=== PATIENT | female | born 1940 | race Caucasian/White ===

== ENCOUNTER 2020-12-10 20:08 | Emergency (ER) | payer MEDICARE ==
[~2020-12-10] VITALS: Ht 162.6 cm; Wt 59.1 kg
[2020-12-10 20:10] VITALS: TEMP 98
[2020-12-10 20:50] LABS: BASO % 0.2 % (0.0-2.0); EOS % 0.2 % (0-4.0); GRAN # 15.1 (1.4-6.5); GRAN % 82.9 % (42.2-75.2); LYMPH # 1.5 (1.2-3.4); LYMPH % 8.5 % (20.0-51.0); MEAN CELL VOLUME 82 fl (80.0-100.0); MEAN CORPUSCULAR HGB CONC 32 g/dl (33.0-37.0); MONO # 1.4 (0.1-0.6); MONO % 7.5 % (1.7-9.3); PLATELET COUNT 400 K/mm3 (130-400); REDCELL DISTRIBUTION WIDTH-CV 15.6 % (11.5-14.5)
[2020-12-10 20:52] LABS: HEMATOCRIT 28.6 % (37.0-47.0); HEMOGLOBIN 9.1 g/dl (12.5-16.0); MEAN CORPUSCULAR HEMOGLOBIN 26 pg (27.0-31.0)
[2020-12-10 21:02] LABS: ALBUMIN 3.4 gm/dL (3.5-5.0); BILIRUBIN,TOTAL 0.1 mg/dL (0.0-1.0); CALCIUM 8.7 mg/dL (8.4-10.2); CREATININE, serum 0.67 (0.52-1.25); POTASSIUM 3.2 mmol/L (3.4-5.0); TOTAL PROTEIN 6.3 gm/dL (6.4-8.2)
[2020-12-10 21:39] LABS: COLLECTION METHOD CLEAN CATCH
[2020-12-10 21:51] LABS: MUCOUS Present /lpf; PH 6 (5-8); SQUAMOUS EPITHELIAL 0-2 /hpf; URINE APPEARANCE Hazy; URINE BACTERIA Rare /hpf; URINE BILIRUBIN Negative (NEGATIVE); URINE BLOOD 1+ (NEGATIVE); URINE COLOR Yellow; URINE GLUCOSE Negative (NEGATIVE); URINE KETONE Trace (NEGATIVE); URINE LEUKOCYTE ESTERASE 2+ (NEGATIVE); URINE NITRATE Negative (NEGATIVE); URINE PROTEIN(semi-quant) 2+ (NEGATIVE); URINE RBC >50 /hpf; URINE UROBILINOGEN Negative (NEGATIVE)
[2020-12-10] MEDS ORDERED: OMNICEF 300MG300 MG PO (22:15)
[2020-12-10 23:34] VITALS: BP 125/78; PULSE 76
[2020-12-18] VITALS (7 sets, daily range): O2SAT 96–97
== END 2020-12-10 23:34 | disposition home or self-care (01) ==
LOC: COL.ER 20:08
PROVIDERS: Family Medicine
DX: N39.0 Urinary tract infection, site not specified (principal); D64.9 Anemia, unspecified; D72.829 Elevated white blood cell count, unspecified; I10 Essential (primary) hypertension; W01.0XXA Fall on same level from slipping, tripping and stumbling without subsequent striking against object, initial encounter; Y92.009 Unspecified place in unspecified non-institutional (private) residence as the place of occurrence of the external cause

== ENCOUNTER 2020-12-17 09:18 | Inpatient (IN) | payer MEDICARE ==
[~2020-12-17] VITALS: Ht 162.6 cm; Wt 61.9 kg
[2020-12-17] VITALS (335 sets, daily range): BP systolic 91–127; BP diastolic 42–60; PULSE 93–119; TEMP 97.5–98; O2SAT 95–100
[~2020-12-17 09:18] MED LIST: OMNICEF 300MG300 MG PO
[2020-12-17 10:04] LABS: MEAN CELL VOLUME 84 fl (80.0-100.0); MEAN CORPUSCULAR HGB CONC 31 g/dl (33.0-37.0); MEAN PLATELET VOLUME 9.9 fl (7.4-10.4); PLATELET COUNT 555 K/mm3 (130-400); RED BLOOD COUNT 3.22 M/mm3 (4.10-5.30); REDCELL DISTRIBUTION WIDTH-CV 15.9 % (11.5-14.5)
[2020-12-17 10:11] LABS: ALBUMIN 3.2 gm/dL (3.5-5.0); BILIRUBIN,TOTAL 0.3 mg/dL (0.0-1.0); CALCIUM 10.2 mg/dL (8.4-10.2); CREATININE, serum 1.12 (0.52-1.25); POTASSIUM 4.6 mmol/L (3.4-5.0); TOTAL PROTEIN 6.2 gm/dL (6.4-8.2)
[2020-12-17 10:20] LABS: HEMATOCRIT 27.1 % (37.0-47.0); HEMOGLOBIN 8.5 g/dl (12.5-16.0); MEAN CORPUSCULAR HEMOGLOBIN 26 pg (27.0-31.0)
[2020-12-17 10:38] LABS: MUCOUS Present /lpf; PH 5 (5-8); SQUAMOUS EPITHELIAL None Seen /hpf; URINE APPEARANCE Cloudy; URINE BACTERIA Rare /hpf; URINE BILIRUBIN Negative (NEGATIVE); URINE BLOOD 3+ (NEGATIVE); URINE COLOR Yellow; URINE GLUCOSE Negative (NEGATIVE); URINE KETONE Negative (NEGATIVE); URINE LEUKOCYTE ESTERASE 3+ (NEGATIVE); URINE NITRATE Negative (NEGATIVE); URINE PROTEIN(semi-quant) 2+ (NEGATIVE); URINE UROBILINOGEN Negative (NEGATIVE)
[2020-12-17 10:42] LABS: COLLECTION METHOD CATHETER
[2020-12-17 10:46] LABS: ANISOCYTOSIS 1+; BAND 4 % (0-10); BASOPHIL 1 % (0-2); HYPOCHROMIA 2+; LYMPHOCYTE 8 % (20.0-51.0); METAMYELOCYTE 2 % (0-0); NEUTROPHILS 82 % (42.0-75.2); PLATELET ESTIMATE INCREASED (NORMAL)
[2020-12-17 10:49] LABS: OVALOCYTES 1+
--- NOTE | 2020-12-17 12:15 | NUR ---
PT ADMITTED FROM ED WITH WEAKNESS, UTI, AND GI BLEED. PT STATES NEEDS TO VOID. PT STOOL AND PIVOTED WITH HELP TO BSC. PT HAD LARGE MAROON STOOL AND BECAME DIZZY. BP CHECKED AND 82/42. PT HELPED TO BED AND LAID FLAT. BP UP TO 100'S. PT STATES FEELS BETTER BUT STILL VERY WEAK. PT INSTRUCTED TO STAY IN BED AND WILL CONTINUE BEDREST AT THIS TIME. PT IS ST ON TELE. PT'S BP NOW UP TO 127/60. PT HAS NS AND ZOSYN RUNNING. PT ORIENTED TO ROOM AND FLOOR. PT STATES DAUGHTER IN LAW WILL BE HER VISITOR. PT GIVEN WARM BLANKET AND WATER. PT HAS CLOTHES IN BELONGING BAG. PT STATES DAUGHTER IN LAW HAS HER PHONE AND GLASSESS AND WILL BE UP SOON. WILL CONTINUE TO [facility].
[2020-12-17] MEDS ORDERED: ZOCOR 20MG20 MG PO (12:55)
[2020-12-17] MEDS ORDERED: NORVASC 5MG5 MG/TAB PO (12:56)
[2020-12-17] MEDS ORDERED: LOTENSIN40 MG PO (12:56)
[2020-12-17] MEDS ORDERED: PRESERVISION1 SGL PO (12:57)
[2020-12-17] MEDS ORDERED: ASPIRIN 81M81 MG/TA2 PO (12:57)
[2020-12-17] MEDS ORDERED: SYSTANE 0.4%-0.1 SOL OP (13:00)
[2020-12-17] MEDS ORDERED: ISTALOL 2.5 ML2.5 ML OU (13:01)
[2020-12-17] MEDS ORDERED: OSCAL 500 TAB500 MG PO (13:02)
[2020-12-17] MEDS ORDERED: OMEGA-3 1000 MG1 CAP PO (13:02)
[2020-12-17] MEDS ORDERED: ALPHAGAN OPHTH D5 ML OU (13:02)
[2020-12-17] MEDS ORDERED: B COMPLEX #11 TA1 PO (13:03)
[2020-12-17] MEDS ORDERED: PHARMASSURE ZIN50 MG PO (13:07)
[2020-12-17] MEDS ORDERED: VITAL-D1 TAB PO (13:07)
[2020-12-17] MEDS ORDERED: ALLERGY RELIEF PO (13:08)
[2020-12-17 16:26] LABS: MEAN CELL VOLUME 83 fl (80.0-100.0); MEAN CORPUSCULAR HGB CONC 31 g/dl (33.0-37.0); MEAN PLATELET VOLUME 10.1 fl (7.4-10.4); PLATELET COUNT 505 K/mm3 (130-400)
[2020-12-17 16:39] LABS: HEMATOCRIT 22.3 % (37.0-47.0); MEAN CORPUSCULAR HEMOGLOBIN 26 pg (27.0-31.0)
--- NOTE | 2020-12-17 17:44 | NUR ---
SPOKE WITH REGARDING HGB DOWN TO 7. ORDER RECEIVED TO TRANSFUSE 1 UNIT PRBCS AND RECHECK BP IN ONE HR AFTER. PT AND DAUGHTER IN LAW UPDATED. CONSENT SIGNED. GENA STARTED FOR COLONOSCOPY TOMORROW.
[2020-12-17 18:04] LABS: ANISOCYTOSIS 1+; HYPOCHROMIA 2+; LYMPHOCYTE 3 % (20.0-51.0); NEUTROPHILS 96 % (42.0-75.2); PLATELET ESTIMATE INCREASED (NORMAL)
--- NOTE | 2020-12-17 20:00 | NUR ---
STRAIGHT CATH'D BLADDER DUE TO PT REPORTING URINARY RETENTION WITH NO OUTPUT FOR THE DAY.
[2020-12-18] VITALS (581 sets, daily range): BP systolic 109–134; BP diastolic 47–92; PULSE 89–104; TEMP 97.5–99; O2SAT 93–100
[2020-12-18 05:59] LABS: MEAN CORPUSCULAR HGB CONC 31 g/dl (33.0-37.0); RED BLOOD COUNT 2.92 M/mm3 (4.10-5.30); REDCELL DISTRIBUTION WIDTH-CV 16.6 % (11.5-14.5)
[2020-12-18 06:12] LABS: HEMATOCRIT 25.9 % (37.0-47.0); MEAN CELL VOLUME 89 fl (80.0-100.0); MEAN CORPUSCULAR HEMOGLOBIN 27 pg (27.0-31.0); PLATELET COUNT 395 K/mm3 (130-400)
[2020-12-18 06:13] LABS: CREATININE, serum 0.92 (0.52-1.25); POTASSIUM 3.3 mmol/L (3.4-5.0)
--- NOTE | 2020-12-18 07:00 | NUR ---
PT RESTING IN BED. PT HAS NS RUNNING. PT DOING PREP FOR COLONOSCOPY. WILL CONTINUE TO MONITOR
[2020-12-18 07:33] LABS: BAND 8 % (0-10); EOSINOPHIL 1 % (0-4); LYMPHOCYTE 4 % (20.0-51.0); METAMYELOCYTE 2 % (0-0); NEUTROPHILS 84 % (42.0-75.2)
[2020-12-18 07:34] LABS: PLATELET ESTIMATE NORMAL (NORMAL)
[2020-12-18 07:35] LABS: ANISOCYTOSIS 1+; HYPOCHROMIA 1+; OVALOCYTES 1+; POIKILOCYTOSIS 1+
[2020-12-18 09:44] LABS: COLLECTION METHOD CATHETER
[2020-12-18 10:00] LABS: PH 5 (5-8); SQUAMOUS EPITHELIAL None Seen /hpf; URINE APPEARANCE Turbid; URINE BACTERIA Occasional /hpf; URINE BILIRUBIN Negative (NEGATIVE); URINE BLOOD 3+ (NEGATIVE); URINE COLOR Red; URINE GLUCOSE Negative (NEGATIVE); URINE KETONE Negative (NEGATIVE); URINE LEUKOCYTE ESTERASE 1+ (NEGATIVE); URINE NITRATE Negative (NEGATIVE); URINE PROTEIN(semi-quant) 2+ (NEGATIVE); URINE UROBILINOGEN Negative (NEGATIVE)
--- NOTE | 2020-12-18 10:01 | NUR ---
Initial visit; Patient and family thanked Wound Care Coordinator for looking in on her and offering God's blessings and to keep her in Wound Care Coordinator's prayers.
--- NOTE | 2020-12-18 10:28 | NUR ---
PT UNABLE TO DRINK ANY MORE PREP. PT'S LAST BM WAS ALL LIQUID BROWN/MAROON. NO SOLIDS. MATTEO HEALY IN PACU CALLED AND UPDATED. STATE OK FOR PROCEDURE. WILL MAKE STRICT NPO UNTIL PROCEDURE. PATIENT AND OFAUTMTK-CE-OLD UPDATED. WILL CONTINUE TO MONTIOR.
--- NOTE | 2020-12-18 12:58 | NUR ---
PT TAKEN DOWN TO ENDOSCOPY
--- NOTE | 2020-12-18 13:53 | NUR ---
conservation worker met with patient and her daughter in law, Rossana to discuss discharge planning. Patient lives upstairs in a home and her son and daughter in law reside in the basement apartment. Worker discussed life alert options and patient is open to this and took brochures. Rossana stated they will help patient set up a system. Rossana states they have a portable door carbone, however, when patient fell she pressed it and the children could not hear it. Patient's primary care provider is Dr joseph and patient denies having difficulty obtaining prescriptions. Patient was not using any devices for mobility, however, states she has a walker. Worker advised that physical and occupational therapy will evaluate and give recommendations for care upon discharge. Patient and Rossana state that there are advance directives and they were given to the hospital.
[2020-12-18 13:59] LABS: PATHOLOGY DIFF REVIEW OK
--- NOTE | 2020-12-18 16:16 | NUR ---
CT RESULTS CALLED TO AND . TO CALL AND CONSULT SURGERY. KEEP PT NPO AT THIS TIME.
[2020-12-19] VITALS (180 sets, daily range): BP systolic 100–132; BP diastolic 40–76; PULSE 68–108; TEMP 97.1–98.4; O2SAT 93–100
--- NOTE | 2020-12-19 06:13 | NUR ---
0544 called report to NIRAJ Tellez patient being transferred to room 344, patient informed of transfer 0610 patient transferred to room 344 with all belongings including clothing, blanket, and eye drops
[2020-12-19 06:15] LABS: MEAN CELL VOLUME 86 fl (80.0-100.0); MEAN CORPUSCULAR HGB CONC 32 g/dl (33.0-37.0); MEAN PLATELET VOLUME 9.9 fl (7.4-10.4); RED BLOOD COUNT 2.24 M/mm3 (4.10-5.30); REDCELL DISTRIBUTION WIDTH-CV 16.2 % (11.5-14.5)
--- NOTE | 2020-12-19 06:16 | NUR ---
Patient arrived to surgical floor room 344 from ICU at this time.
[2020-12-19 06:25] LABS: HEMATOCRIT 19.3 % (37.0-47.0); HEMOGLOBIN 6.1 g/dl (12.5-16.0); MEAN CORPUSCULAR HEMOGLOBIN 27 pg (27.0-31.0); PLATELET COUNT 287 K/mm3 (130-400)
--- NOTE | 2020-12-19 06:43 | NUR ---
Patient's hemoglobin was 6.1. Called to Dr. Hope. New order to transfuse 1 unit of blood. Order placed. Called lab and notified them of order.
[2020-12-19 06:44] LABS: CALCIUM 7.4 mg/dL (8.4-10.2); CREATININE, serum 0.64 (0.52-1.25)
[2020-12-19 06:48] LABS: POTASSIUM 2.8 mmol/L (3.4-5.0)
--- NOTE | 2020-12-19 07:00 | NUR ---
Report received from NIRAJ Tellez. Pt in bed resting, denies needs, will conitnue ot monitor.
--- NOTE | 2020-12-19 07:15 | NUR ---
Re's Potassium came back at 2.8. Called to Dr. Hope. New order to start Potassium protocol. Orders placed, recheck level 3 hours after last dose. Day shift nurse notified.
[2020-12-19 07:31] LABS: BAND 4 % (0-10); EOSINOPHIL 2 % (0-4); HYPOCHROMIA 3+; LYMPHOCYTE 13 % (20.0-51.0); METAMYELOCYTE 3 % (0-0); NEUTROPHILS 72 % (42.0-75.2); PLATELET ESTIMATE NORMAL (NORMAL)
[2020-12-19 07:32] LABS: OVALOCYTES 1+
[2020-12-19 07:33] LABS: ANISOCYTOSIS 1+
--- NOTE | 2020-12-19 11:59 | NUR ---
Pt has 1 U PRBCs running to R a/c at this time, verified with 2nd RN and remained in room for first 15 minutes of transfusion, no s/sx of a transfusion reaction noted. Pt resting in bed, up to BSC as needed to void, urine is yellow and hazy. Pt is pale and feels cold, warm blankets applied. Resting in bed with daughter in law at bedside, eating CLD well. Mepilex applied to ST 1 on coccyx. Will continue to monitor.
[2020-12-19 17:21] LABS: HEMATOCRIT 26.2 % (37.0-47.0); HEMOGLOBIN 8.3 g/dl (12.5-16.0)
--- NOTE | 2020-12-19 19:05 | NUR ---
Pt has done well this afternoon, resting in bed between disturbances. Up to BSC often to void, urine remains cloudy. Bedside shift report given to nightshift nurse who will resume care.
[2020-12-20 01:40] VITALS: BP 113/54; PULSE 77; TEMP 97.8
[2020-12-20 04:43] VITALS: BP 138/50; PULSE 78; TEMP 97.9
--- NOTE | 2020-12-20 06:03 | NUR ---
RESTING QUIETLY. NO N/V. PT MALLIKA DENIED NEED FOR PAIN MEDICATION. SHE AMBULATED IN ROOM WITHOUT DIFFICULTY DURING THE NIGHT.
[2020-12-20 07:07] LABS: MEAN CELL VOLUME 88 fl (80.0-100.0); MEAN CORPUSCULAR HGB CONC 32 g/dl (33.0-37.0); MEAN PLATELET VOLUME 10.3 fl (7.4-10.4); PLATELET COUNT 332 K/mm3 (130-400); RED BLOOD COUNT 3.07 M/mm3 (4.10-5.30); REDCELL DISTRIBUTION WIDTH-CV 16.6 % (11.5-14.5)
[2020-12-20 07:18] LABS: HEMOGLOBIN 8.6 g/dl (12.5-16.0); MEAN CORPUSCULAR HEMOGLOBIN 28 pg (27.0-31.0)
[2020-12-20 07:21] LABS: ALBUMIN 2.7 gm/dL (3.5-5.0); BILIRUBIN,TOTAL 0.3 mg/dL (0.0-1.0); CALCIUM 8.4 mg/dL (8.4-10.2); CREATININE, serum 0.66 (0.52-1.25); POTASSIUM 3.5 mmol/L (3.4-5.0); TOTAL PROTEIN 5.5 gm/dL (6.4-8.2)
--- NOTE | 2020-12-20 08:00 | NUR ---
PATIENT IS A&O. VSS WITH TELE INPLACE. DENIES PAIN OR NAUSEA. PATIENT ASSISTED TO BATHROOM AND HAD LARGE, SOFT-FORMED BM, NO BLOOD NOTED. PATIENT HAS HAD EGD & COLONOSCOPY DURING STAY, SEE RESULTS. AM HGB IS 8.6 AND PATIENT IS ASYMPTOMATIC. LEFT FORARM IV TO INT. AM MEDS GIVEN. HEAD TO TOE ASSESSMENT COMPLETE, SEE CHARTING. PATIENT ASSISTED INTO BEDSIDE CHAIR. CLEAR BREAKFAST TRAY ORDERED. NO OTHER NEEDS AT THIS TIME. CALL LIGHT IN REACH. FAMILY FRIEND NOW AT BEDSIDE.
[2020-12-20 08:22] LABS: LYMPHOCYTE 14 % (20.0-51.0); NEUTROPHILS 85 % (42.0-75.2)
[2020-12-20 08:23] LABS: ANISOCYTOSIS 1+; HYPOCHROMIA 2+; PLATELET ESTIMATE NORMAL (NORMAL)
[2020-12-20 08:55] VITALS: BP 145/58; PULSE 66; TEMP 98.1
[2020-12-20 11:53] VITALS: BP 146/60; PULSE 73; TEMP 98
[2020-12-20 16:55] VITALS: BP 150/54; PULSE 79; TEMP 97.9
--- NOTE | 2020-12-20 20:00 | NUR ---
PATIENT IS SITTING UP IN BED. PATIENT IS ALERT AND ORIENTED X4. PATIENT IS ON CLEAR LIQUID DIET AND ON TELE. PATIENT HAS IV TO THE LEFT FOREARM. 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 PATIENT DENIES PAIN OR FURTHER NEEDS AT THIS TIME. CALL LIGHT WITHIN REACH. HEAD TO TOE ASSESSMENT COMPLETE.
[2020-12-20 20:02] VITALS: BP 135/45; PULSE 77; TEMP 98.3
[2020-12-21] VITALS (7 sets, daily range): BP systolic 93–157; BP diastolic 52–69; PULSE 68–78; TEMP 97.5–98.8
--- NOTE | 2020-12-21 06:18 | NUR ---
PATIENT DID WELL THROUGHOUT THE NIGHT. GOT UP TO URINATE THROUGHOUT THE NIGHT. NO FURTHER NEEDS AT THIS TIME. CALL LIGHT WITHIN REACH. WILL REPORT TO DAYSHIFT.
[2020-12-21 07:26] LABS: MEAN CELL VOLUME 86 fl (80.0-100.0); MEAN CORPUSCULAR HGB CONC 32 g/dl (33.0-37.0); MEAN PLATELET VOLUME 9.6 fl (7.4-10.4); PLATELET COUNT 358 K/mm3 (130-400); RED BLOOD COUNT 3.39 M/mm3 (4.10-5.30); REDCELL DISTRIBUTION WIDTH-CV 16.8 % (11.5-14.5)
[2020-12-21 07:29] LABS: HEMATOCRIT 29.1 % (37.0-47.0); HEMOGLOBIN 9.4 g/dl (12.5-16.0); MEAN CORPUSCULAR HEMOGLOBIN 28 pg (27.0-31.0)
[2020-12-21 07:34] LABS: ANION GAP 5 mmol/L (7-16); BLOOD UREA NITROGEN < 2 mg/dL (7-17); CALCIUM 8.6 mg/dL (8.4-10.2); CARBON DIOXIDE 28 mmol/L (22-30); CHLORIDE 105 mmol/L (98-107); CREATININE, serum 0.72 (0.52-1.25); GLUCOSE 99 mg/dL (74-106); POTASSIUM 3.5 mmol/L (3.4-5.0); SODIUM 138 mmol/L (137-145)
--- NOTE | 2020-12-21 12:09 | NUR ---
HOSPITALIST TEAM AT BEDSIDE. PATIENT SITTING UP IN CHAIR WITH CLEAR LIQUID LUNCH TRAY. FAMILY MEMBER AT BEDSIDE. PATIENT DOING WELL AND PLANNING ON SURGERY TOMORROW
--- NOTE | 2020-12-21 20:00 | NUR ---
PATIENT IS SITTING UP IN BED. ALERT AND ORIENTED X4. PATIENT UP AMBULATED TO BATHROOM. STEADY GAIT. PATIENT HAS IV TO LEFT FOREARM INT. PATIENT ON CLEAR DIET BUT TO BE NPO AT MIDNIGHT FOR SURGERY IN THE MORNING. PATIENT ON TELE. PATIENT DENIES PAIN OR FURTHER NEEDS AT THIS ITME. CALL LIGHT WITHIN REACH. HEAD TO TOE ASSESSMENT COMPLETE.
[2020-12-22] VITALS (13 sets, daily range): BP systolic 89–137; BP diastolic 42–73; PULSE 60–106; TEMP 97.8–98.7
--- NOTE | 2020-12-22 06:14 | NUR ---
PATIENT DID WELL THROUGHOUT NIGHT. SLEPT MOST OF NIGHT. UP TO THE BATHROOM THROUGHOUT NIGHT. STEADY GAIT. NPO SINCE MIDNIGHT. NO FURTHER NEEDS AT THIS TIME. CALL LIGHT WITHIN REACH. WILL REPORT TO DAYSHIFT
[2020-12-22 07:21] LABS: MEAN CELL VOLUME 86 fl (80.0-100.0); MEAN CORPUSCULAR HGB CONC 32 g/dl (33.0-37.0); MEAN PLATELET VOLUME 9.8 fl (7.4-10.4); PLATELET COUNT 351 K/mm3 (130-400); RED BLOOD COUNT 3.39 M/mm3 (4.10-5.30); REDCELL DISTRIBUTION WIDTH-CV 17.4 % (11.5-14.5)
[2020-12-22 07:30] LABS: CALCIUM 8.6 mg/dL (8.4-10.2); CREATININE, serum 0.87 (0.52-1.25); MAGNESIUM 2.2 mg/dL (1.6-2.3)
[2020-12-22 07:31] LABS: HEMATOCRIT 29.3 % (37.0-47.0); HEMOGLOBIN 9.4 g/dl (12.5-16.0); MEAN CORPUSCULAR HEMOGLOBIN 28 pg (27.0-31.0)
--- NOTE | 2020-12-22 08:00 | NUR ---
PATIENT IS A&O. VSS ON TELE. DENIES PAIN OR NAUSEA. NPO FOR SURGERY LATER TODAY. CONCENT ON CHART. AM MEDS GIVEN WITH SIPS. HEAD TO TOE ASSESSMENT COMPLETE, SEE CHARTING. FAMILY AT BEDSIDE. NO CONCERNS AT THIS TIME. CALL LIGHT IN REACH.
--- NOTE | 2020-12-22 12:45 | NUR ---
PATIENT GOING DOWN TO OR VIA BED. FAMILY AT BEDSIDE. PATIENT OFF FLOOR
--- NOTE | 2020-12-22 19:00 | NUR ---
PATIENT C/O FEELING A LOT OF BLADDER PRESSURE AND A STRONG URGE TO VOID. NOTED 200CC OF TEA COLORED URINE IN FREITAS BAG WITH A FEW SMALL TISSUE CLOTS NOTED. BLADDER SCAN SHOWED 78CC. PATIENT ALSO REPORTING LOTS OF PAIN. ANESTHESIA AT BEDSIDE AND INCREASED EPIDURAL RATE. NOTIFIED , SEE NEW ORDERS.
--- NOTE | 2020-12-22 20:00 | NUR ---
PATIENT IS ALERT AND ORIENTED BUT CONFUSED. CANNOT REMEMEBER THAT SHE HAS A FREITAS IN. RATES PAIN AT A 10/10 BUT MORE FROM PRESSURE. SAYS SHE FEELS LIKE SHE IS GOING TO "EXPLODE". EXPLAINED EPIDURAL BUTTON TO PATIENT. GIVEN WARM BLANKET TO HOLD OVER INCISION. PATIENT HAS MIDLINE INCISION, CDI, COVERED WITH GAUZE AND TAPE. PATIENT HAS FREITAS WITH REDDISH AND CLEAR OUTPUT. PATIENT HAS EPIDURAL GOING WITH PHENTYL. PATIENT HAS LEFT IJ INT AND LEFT FOREARM IV INFUSING. PATIENT DENIES FURTHER NEEDS AT THIS TIME. CALL LIGHT WITHIN REACH. HEAD TO TOE ASSESSMENT COMPLETE.
--- NOTE | 2020-12-22 21:00 | NUR ---
PRODUCT SAFETY OFFICER IN ROOM WITH PATIENT. PATIENT PASSED OUT ON BEDSIDE COMMODE. PATIENT PUT BACK INTO BED. CHARGE NURSE IN ROOM. PATIENT BACK UP AND ALERT AND ORIENTED. VSS. ESPINOSA, HOSPITALIST NOTIFIED. ORDERED NORMAL SALINE AT 150ML/HR AND EKG AND CARDIAC CONSULT. PATIENT SAYS SHE IS " FEELING BETTER NOW" NO FURTHER NEEDS AT THIS TIME.
--- NOTE | 2020-12-22 21:00 | NUR ---
PCT yelled out from room that help was needed. This nurse to room and patient noted to be sitting on bedside commode-pale, diaphoretic and unresponsive to sternal bed. Assisted back to bed by this nurse/PCT. NIRAJ Holliday at bedside. Report given.
[2020-12-23 04:00] VITALS: BP 118/35; PULSE 95
--- NOTE | 2020-12-23 06:22 | NUR ---
PATIENT DID WELL THROUGHOUT THE NIGHT. SLEPT MOST OF NIGHT. NO OTHER EPISODES OF PASSING OUT. PAIN MEDS GIVEN PER ORDERS. NO FURTHER NEEDS AT THIS TIME. WILL REPORT TO DAYSHIFT.
[2020-12-23 07:25] LABS: MEAN CELL VOLUME 90 fl (80.0-100.0); MEAN CORPUSCULAR HGB CONC 31 g/dl (33.0-37.0); MEAN PLATELET VOLUME 10.4 fl (7.4-10.4); PLATELET COUNT 375 K/mm3 (130-400); RED BLOOD COUNT 3.35 M/mm3 (4.10-5.30); REDCELL DISTRIBUTION WIDTH-CV 17.5 % (11.5-14.5)
[2020-12-23 07:28] LABS: CALCIUM 8.1 mg/dL (8.4-10.2); CREATININE, serum 1.37 (0.52-1.25)
[2020-12-23 07:36] LABS: HEMATOCRIT 30.1 % (37.0-47.0); HEMOGLOBIN 9.2 g/dl (12.5-16.0); MEAN CORPUSCULAR HEMOGLOBIN 27 pg (27.0-31.0)
[2020-12-23 07:47] VITALS: BP 106/52; PULSE 96; TEMP 97.9
[2020-12-23 08:29] LABS: ANISOCYTOSIS 1+; BAND 1 % (0-10); HYPOCHROMIA 3+; LYMPHOCYTE 5 % (20.0-51.0); NEUTROPHILS 92 % (42.0-75.2); OVALOCYTES 1+; PLATELET ESTIMATE NORMAL (NORMAL)
--- NOTE | 2020-12-23 10:18 | NUR ---
Patient's daughter n law, Rossana, asked to speak with this SW prior to meeting with patient, who states that patient's cognitive abilities have began declining (memory and confusion). although some days she is fine. Patient has resided with her son and dtr n law since 2020 d/t to her health declining. Patient had been living in [place] independently but she has glaucoma, macular degeneration, and other health issues. Patient has walker and cane but states she doesn't use them. PCP is Lali Guillermo and she is able to get her prescriptions with no issues. *D/C to [facility] for rehab prior to returning home
[2020-12-23 11:35] VITALS: BP 108/45; PULSE 76; TEMP 98.2
--- NOTE | 2020-12-23 13:00 | NUR ---
Assumed care of patient at apptoximatly 1230. Patient in bed resting. Alert and oriented x3. Assessment complete. Gera hose to LLE. SCDs to BLE. Pedal pulses intact. Denies needs at this time.
--- NOTE | 2020-12-23 13:00 | NUR ---
Assumed care of patient at approximatly 1230. Patient is alert and oriented x3. Family at bedside. Midline incision with gauze and tape; CDI. Epidural in place. Fluids infusing to left forarm IV. IV to left IJ noted. Patient denies pain or needs at this time.
[2020-12-23 15:32] VITALS: BP 110/38; PULSE 75; TEMP 97.7
--- NOTE | 2020-12-23 19:21 | NUR ---
Patient doing well this afternoon. Fluids continue infusing per orders. Patient denies pain. Epidural cartriage changed by anesthesia this afternoon. Patient denies needs at this time. Will report off to shift nurse manager.
[2020-12-23 19:31] VITALS: BP 93/50; PULSE 86; TEMP 98
--- NOTE | 2020-12-23 19:45 | NUR ---
Pt. laying in bed with eyes closed, respirations equal and unlabored. Pt. arouses to verbal stimuli. Pt. is A&OX3, assessment complete. IV to lt. forearm patent, IV fluids infusing per orders. Zepeda catheter to DD, red tinged urine noted.
[2020-12-24] VITALS (7 sets, daily range): BP systolic 107–140; BP diastolic 37–87; PULSE 78–94; TEMP 97.9–99.1
[2020-12-24 06:39] LABS: MEAN CELL VOLUME 90 fl (80.0-100.0); MEAN CORPUSCULAR HGB CONC 30 g/dl (33.0-37.0); MEAN PLATELET VOLUME 10.7 fl (7.4-10.4); PLATELET COUNT 276 K/mm3 (130-400); RED BLOOD COUNT 2.62 M/mm3 (4.10-5.30); REDCELL DISTRIBUTION WIDTH-CV 17.6 % (11.5-14.5)
[2020-12-24 06:44] LABS: HEMATOCRIT 23.5 % (37.0-47.0); HEMOGLOBIN 7.1 g/dl (12.5-16.0); MEAN CORPUSCULAR HEMOGLOBIN 27 pg (27.0-31.0)
[2020-12-24 06:56] LABS: CALCIUM 7.6 mg/dL (8.4-10.2); CREATININE, serum 1.21 (0.52-1.25); POTASSIUM 3.7 mmol/L (3.4-5.0)
[2020-12-24 07:37] LABS: BAND 3 % (0-10); EOSINOPHIL 2 % (0-4); HYPOCHROMIA 1+; LYMPHOCYTE 14 % (20.0-51.0); METAMYELOCYTE 1 % (0-0); NEUTROPHILS 74 % (42.0-75.2)
[2020-12-24 07:38] LABS: OVALOCYTES 1+; PLATELET ESTIMATE NORMAL (NORMAL); POLYCHROMASIA 1+
--- NOTE | 2020-12-24 08:10 | NUR ---
Patient assisted up to chair. 2 assist she did well. rounded this am. Patient daughter in law at bedside. Plan of care reviewed. Patient very excited to be eating a low finer diet. She denies nausea. Reports passing flatus yesterday. Abdomen soft. Midline gauze dressing intact. Zepeda to DD. IVF per orders. Will monitor closely. High fll risk protocol followed.
--- NOTE | 2020-12-24 08:55 | NUR ---
On 12/23/2020, outreach and education social worker gave referrals to [facility] and [facility]. [facility] advises that they can accept patient. Awaiting screening from [facility].
--- NOTE | 2020-12-24 09:57 | NUR ---
Son is touring [facility] this afternoon. Received message from Yinka at [facility] and they won't have a bed until Monday. Patient is currently on epideral and is receiving IV antibiotics 3 x day. *D/C to [facility] when appropriate. [facility] accepted; awaiting [facility] screening.
--- NOTE | 2020-12-24 10:54 | NUR ---
Patient lying in bed sleeping soudly. Will monitor
[2020-12-24 14:27] LABS: HEMATOCRIT 25.2 % (37.0-47.0); HEMOGLOBIN 7.9 g/dl (12.5-16.0)
--- NOTE | 2020-12-24 16:30 | NUR ---
Patient up to the bathroom, One assist. Steady on her feet. This nurse & daughter assisted with hygiene. Zepeda cares given. Adequate output today. Patient continues to tolerate meals. Denies nausea. Pain continues to be managed with epidural rate that was decreased by anesthesia. Pain rating 0/10. Midline abdominal drg CDI. Abdomen remains soft. IV to INT. Will monitor
--- NOTE | 2020-12-24 17:01 | NUR ---
SW made numerous attempts to speak with patient's son and/or dtr n law after they toured facilities ([facility] and [facility]) but they are still undecided. Dtr n law, Rossana, told this worker they would have a decision between the two tomorrow/Monday. Since patient may d/c tomorrow, this worker faxed referrals to [facility] and [facility] facilities. SW will cont to follow patient's needs. *D/C to rehab facility when medically appropriate
--- NOTE | 2020-12-24 17:26 | NUR ---
Patient sitting up in chair. Word niko provided. She seems a little more confused this afternoon. reoriented as needed.
--- NOTE | 2020-12-24 19:14 | NUR ---
Patient resting in bed. I did speak with Jaya in anesthesia & made him aware of noticed confusion. Epidural now infusing 3ml/hr. decreased from 5. Patient did well with dinner. Encouraged her to take is slow. Up to the bathroom & no Bm. She forgot she had a mckay. High fall risk protocol reviewed. Report to night nurse
--- NOTE | 2020-12-24 19:30 | NUR ---
RECEIVED CHANGE OF SHIFT REPORT FROM DAY SHIFT NURSE.
--- NOTE | 2020-12-25 | NUR ---
PATIENT SLEEPING AND DOES NOT WAKE WHEN STAFF ENTER ROOM ON ROUNDS. BREATHING NONLABORED AND EVEN. EPIDURAL REFINISH TECHNICIAN CONTINUES, TELE IN PLACE. FREITAS IN PLACE AND DRAINING WITH NO PROBLEMS. WHEN AWAKE, DENIED CHEST PAIN/SOA. DENIED NUMBNESS/TINGLING TO EXTREMITIES. IV SITES TO LEFT NECK AND LFA IN PLACE.
[2020-12-25 04:47] VITALS: BP 140/48; PULSE 79; TEMP 98
[2020-12-25 06:42] LABS: BASO % 0.3 % (0.0-2.0); EOS # 0.3 (0.0-0.7); EOS % 2.3 % (0-4.0); GRAN # 9.4 (1.4-6.5); GRAN % 79.5 % (42.2-75.2); HEMATOCRIT 22.6 % (37.0-47.0); HEMOGLOBIN 7.1 g/dl (12.5-16.0); LYMPH # 1.2 (1.2-3.4); LYMPH % 10.2 % (20.0-51.0); MEAN CELL VOLUME 87 fl (80.0-100.0); MEAN CORPUSCULAR HEMOGLOBIN 27 pg (27.0-31.0); MEAN CORPUSCULAR HGB CONC 31 g/dl (33.0-37.0); MEAN PLATELET VOLUME 10.3 fl (7.4-10.4); MONO # 0.8 (0.1-0.6); MONO % 6.5 % (1.7-9.3); PLATELET COUNT 305 K/mm3 (130-400); RED BLOOD COUNT 2.61 M/mm3 (4.10-5.30)
[2020-12-25 06:53] LABS: CALCIUM 8.2 mg/dL (8.4-10.2); CREATININE, serum 0.75 (0.52-1.25); MAGNESIUM 1.9 mg/dL (1.6-2.3); POTASSIUM 3.5 mmol/L (3.4-5.0)
--- NOTE | 2020-12-25 06:58 | NUR ---
CHANGE OF SHIFT REPORT GIVEN TO DAY SHIFT NURSEKAREN RN.
[2020-12-25 07:50] VITALS: BP 151/67; PULSE 78; TEMP 98.3
--- NOTE | 2020-12-25 09:32 | NUR ---
Patient sitting up in chair. Daughter at bedside. She is reading cards. She was up to the bathroom & had a small BM, assisted with pericares. She denies pain. Epidual @3. Midline. Abdomen soft, bowels audible. Zepeda to DD. Will monitor.
--- NOTE | 2020-12-25 09:45 | NUR ---
SW contacted Faye at [facility] who states they accept patient once ready to dc. Clinical updates faxed.
[2020-12-25 11:26] VITALS: BP 148/59; PULSE 75; TEMP 98
--- NOTE | 2020-12-25 12:51 | NUR ---
Patient assisted back to bed. She is ready for an afternoon nap. rounded. Epidural DC by Genia HEALY per orders. This nurse DC left external jugular. Zepeda remains to DD per orders. She tolerated light nurse, she did not like her food, but was not wanting anything else that was offered at this time.
--- NOTE | 2020-12-25 12:55 | NUR ---
Faye at [facility] accepts patient to skilled care when discharged. Patient and family notified of acceptance
[2020-12-25 15:06] VITALS: BP 158/55; PULSE 92; TEMP 98.6
--- NOTE | 2020-12-25 16:19 | NUR ---
Patient has awoken from her now in elevated pain since epidural removal. Pain to her low abdomen, I have spoken with simon Vinson. Patient medicated per orders see EMAR. Patient is not able to have pain tolerable since meidcation. She is sitting up in chair. She ambulated halls with therapy. High fall risk protocol followed, some confusion noted, she did ask if there is a parade today. Reorinted as needed.
--- NOTE | 2020-12-25 19:02 | NUR ---
Patient assisted back to bed. One assist with walker & gaitbelt. Pain well managed at this time. Katelyn DD, adequate output. Int. She tolerated dinner without nausea. Scds ble. Bedside report to Garrett HEALY
[2020-12-25 19:19] VITALS: BP 150/52; PULSE 76; TEMP 98
--- NOTE | 2020-12-25 21:45 | NUR ---
Pt. sitting up in bed. Pt. is A&OX3, assessment complete. INT to lt. forearm patent. Pt. denies pain or other needs, call light within reach.
[2020-12-25 23:48] VITALS: BP 135/49; PULSE 77; TEMP 98.7
[2020-12-26 03:03] VITALS: BP 128/53; PULSE 69; TEMP 98.1
[2020-12-26 07:51] VITALS: BP 152/54; PULSE 78; TEMP 98.1
[2020-12-26 07:53] LABS: BASO % 0.5 % (0.0-2.0); EOS # 0.3 (0.0-0.7); EOS % 3.2 % (0-4.0); GRAN # 6.5 (1.4-6.5); GRAN % 77.3 % (42.2-75.2); LYMPH % 12.1 % (20.0-51.0); MEAN CELL VOLUME 86 fl (80.0-100.0); MEAN CORPUSCULAR HGB CONC 32 g/dl (33.0-37.0); MEAN PLATELET VOLUME 10.1 fl (7.4-10.4); MONO # 0.5 (0.1-0.6); MONO % 5.9 % (1.7-9.3); PLATELET COUNT 345 K/mm3 (130-400); RED BLOOD COUNT 2.77 M/mm3 (4.10-5.30); REDCELL DISTRIBUTION WIDTH-CV 16.8 % (11.5-14.5)
[2020-12-26 07:58] LABS: HEMATOCRIT 23.7 % (37.0-47.0); HEMOGLOBIN 7.5 g/dl (12.5-16.0); MEAN CORPUSCULAR HEMOGLOBIN 27 pg (27.0-31.0)
[2020-12-26 08:06] LABS: CALCIUM 8.1 mg/dL (8.4-10.2); CREATININE, serum 0.5 (0.52-1.25); POTASSIUM 3.4 mmol/L (3.4-5.0)
[2020-12-26] MEDS ORDERED: PROTONIX 40MG T40 MG PO (10:55)
[2020-12-26] MEDS ORDERED: BANOPHEN MAXIMU1 CRE TP (10:55)
[2020-12-26] MEDS ORDERED: TYLENOL 325MG325 MG PO (10:55)
[2020-12-26] MEDS ORDERED: FERRO-TIME325 MG PO (10:55)
[2020-12-26 11:45] VITALS: BP 140/57; PULSE 72; TEMP 98
--- NOTE | 2020-12-26 12:30 | NUR ---
Patient will be going to [facility] today. Discontinuing mckay catheter. Patient is hoping it will help her spasms/cramps. She is alert and forgetful. Denies nausea, only complaints of pain are the bladder spasms. No other changes at this time. Call light within reach.
[2020-12-26] MEDS ORDERED: ULTRAM 50MG TAB50 MG PO (12:32)
[2020-12-26] MEDS ORDERED: LEVSIN0.125 M1 PO (12:34)
--- NOTE | 2020-12-26 14:24 | NUR ---
Notified of DC. Nurse called to confirm medication provider. Jessica is about to take Escript. Transfer to [facility] at 03:00 p.m. TEREZA faxed DC order to [facility] with CV test -. NF.
[2020-12-26 14:32] VITALS: BP 140/57; PULSE 72; TEMP 98
--- NOTE | 2020-12-26 15:00 | NUR ---
Patient is discharging to [facility]. Her belongings were packed up and sent with her except her blanket. It was left on the bed, she folded it up but it didn't make into her bag. Noticed it while giving report to the nurse from [facility] and let her know. Info packet sent with patient. Notified her daughter in law about her being transferred to [facility].
== END 2020-12-26 15:05 | DRG 853 ==
LOC: COL.ER 09:18 → SURG 11:23 → ICU 11:23 → SURG 12-19 06:16
PROVIDERS: Family Medicine; Internal Medicine; Physician Assistant; Registered Nurse; Surgery; Urology; ADMIT Internal Medicine
PROC: 0DB78ZX Excision of Stomach, Pylorus, Via Natural or Artificial Opening Endoscopic, Diagnostic (ICD-10-PCS; 2020-12-18)
PROC: 0DB98ZX Excision of Duodenum, Via Natural or Artificial Opening Endoscopic, Diagnostic (ICD-10-PCS; 2020-12-18)
PROC: 0W3P8ZZ Control Bleeding in Gastrointestinal Tract, Via Natural or Artificial Opening Endoscopic (ICD-10-PCS; 2020-12-18)
PROC: 0T778DZ Dilation of Left Ureter with Intraluminal Device, Via Natural or Artificial Opening Endoscopic (ICD-10-PCS; principal; 2020-12-22 12:30)
PROC: 0DTG0ZZ Resection of Left Large Intestine, Open Approach (ICD-10-PCS; 2020-12-22 12:30)
DX: A41.9 Sepsis, unspecified organism (principal); K26.4 Chronic or unspecified duodenal ulcer with hemorrhage; N39.0 Urinary tract infection, site not specified; N17.9 Acute kidney failure, unspecified; K57.20 Diverticulitis of large intestine with perforation and abscess without bleeding; N32.1 Vesicointestinal fistula; N13.30 Unspecified hydronephrosis; Z20.822 Contact with and (suspected) exposure to COVID-19; D50.0 Iron deficiency anemia secondary to blood loss (chronic); D47.3 Essential (hemorrhagic) thrombocythemia; I08.1 Rheumatic disorders of both mitral and tricuspid valves; I10 Essential (primary) hypertension; H40.9 Unspecified glaucoma; E87.6 Hypokalemia; L72.9 Follicular cyst of the skin and subcutaneous tissue, unspecified; H35.30 Unspecified macular degeneration; E78.5 Hyperlipidemia, unspecified; W18.30XA Fall on same level, unspecified, initial encounter; Z79.82 Long term (current) use of aspirin; Z90.710 Acquired absence of both cervix and uterus; Z90.49 Acquired absence of other specified parts of digestive tract
CPT/HCPCS: 99223-AI; 99232-AI; 99233-AI; 99239; A4314; A9284; C1769; C2617; C9113; J2250; J2270; J2405; J2543; J2704; J3010; J7030; J7042; J7120; P9016; Q9967

== ENCOUNTER → 2021-01-01 | Outpatient (CLI) | payer MEDICARE ==
[~2021-01-01] MED LIST changes: +ALLERGY RELIEF PO; +ALPHAGAN OPHTH D5 ML OU; +ASPIRIN 81M81 MG/TA2 PO; +B COMPLEX #11 TA1 PO; +BANOPHEN MAXIMU1 CRE TP; +FERRO-TIME325 MG PO; +ISTALOL 2.5 ML2.5 ML OU; +LEVSIN0.125 M1 PO; +LOTENSIN40 MG PO; +NORVASC 5MG5 MG/TAB PO; +OMEGA-3 1000 MG1 CAP PO; +OSCAL 500 TAB500 MG PO; +PHARMASSURE ZIN50 MG PO; +PRESERVISION1 SGL PO; +PROTONIX 40MG T40 MG PO; +SYSTANE 0.4%-0.1 SOL OP; +TYLENOL 325MG325 MG PO; +ULTRAM 50MG TAB50 MG PO; +VITAL-D1 TAB PO; +ZOCOR 20MG20 MG PO
[2021-01-01 12:26] LABS: BASO # 0.1 (0.0-0.2); BASO % 0.4 % (0.0-2.0); EOS # 0.3 (0.0-0.7); EOS % 2.1 % (0-4.0); GRAN # 10.9 (1.4-6.5); GRAN % 80.2 % (42.2-75.2); LYMPH # 1.4 (1.2-3.4); LYMPH % 10.1 % (20.0-51.0); MEAN CELL VOLUME 85 fl (80.0-100.0); MEAN CORPUSCULAR HGB CONC 32 g/dl (33.0-37.0); MONO # 0.9 (0.1-0.6); MONO % 6.8 % (1.7-9.3); PLATELET COUNT 481 K/mm3 (130-400); RED BLOOD COUNT 3.11 M/mm3 (4.10-5.30); REDCELL DISTRIBUTION WIDTH-CV 17.8 % (11.5-14.5)
[2021-01-01 12:36] LABS: HEMATOCRIT 26.4 % (37.0-47.0); HEMOGLOBIN 8.4 g/dl (12.5-16.0); MEAN CORPUSCULAR HEMOGLOBIN 27 pg (27.0-31.0)
== END ==
LOC: ZCOL.LAB 11:58
PROVIDERS: Family Medicine
DX: D64.9 Anemia, unspecified (principal)

== ENCOUNTER → 2021-02-08 | Outpatient (CLI) | payer MEDICARE ==
[2021-02-08 17:29] LABS: BASO % 0.5 % (0.0-2.0); EOS # 0.2 K/mm3 (0.0-0.7); EOS % 3.7 % (0-4.0); GRAN # 3.9 K/mm3 (1.4-6.5); GRAN % 62.4 % (42.2-75.2); HEMOGLOBIN 11.1 g/dl (12.5-16.0); LYMPH # 1.6 K/mm3 (1.2-3.4); LYMPH % 26.5 % (20.0-51.0); MEAN CELL VOLUME 89 fl (80.0-100.0); MEAN CORPUSCULAR HEMOGLOBIN 27 pg (27.0-31.0); MEAN CORPUSCULAR HGB CONC 30 g/dl (33.0-37.0); MEAN PLATELET VOLUME 11.4 fl (7.4-10.4); MONO # 0.4 K/mm3 (0.1-0.6); MONO % 6.6 % (1.7-9.3); PLATELET COUNT 311 K/mm3 (130-400); RED BLOOD COUNT 4.13 M/mm3 (4.10-5.30); REDCELL DISTRIBUTION WIDTH-CV 15.6 % (11.5-14.5)
[2021-02-08 17:32] LABS: HEMATOCRIT 36.8 % (37.0-47.0)
[2021-02-08 17:46] LABS: CALCIUM 9.3 mg/dL (8.4-10.2); CREATININE, serum 0.92 mg/dL (0.57-1.11); POTASSIUM 3.9 mmol/L (3.5-4.5)
== END ==
LOC: ZLAB.STJ 17:20
PROVIDERS: Family Medicine
DX: E11.9 Type 2 diabetes mellitus without complications (principal); D64.9 Anemia, unspecified

== ENCOUNTER → 2021-07-07 | Outpatient (CLI) | payer MEDICARE ==
[2021-07-07 17:58] LABS: CALCIUM 9.1 mg/dL (8.4-10.2); CREATININE, serum 1.31 mg/dL (0.57-1.11); POTASSIUM 4.4 mmol/L (3.5-4.5)
== END ==
LOC: ZLAB.STJ 16:30
PROVIDERS: Family Medicine
DX: I10 Essential (primary) hypertension (principal)

== ENCOUNTER → 2021-07-21 | Outpatient (CLI) | payer MEDICARE ==
[2021-07-21 15:35] LABS: CALCIUM 9.3 mg/dL (8.4-10.2); CREATININE, serum 1.41 mg/dL (0.57-1.11); POTASSIUM 4.1 mmol/L (3.5-4.5)
== END ==
LOC: ZLAB.STJ 15:23
PROVIDERS: Family Medicine
DX: I10 Essential (primary) hypertension (principal)

== ENCOUNTER → 2021-09-30 | Outpatient (CLI) | payer MEDICARE ==
[2021-09-30 16:16] LABS: COLLECTION METHOD CLEAN CATCH; PH 6 (5-8); SQUAMOUS EPITHELIAL 0-2 /hpf (0-10); URINE APPEARANCE Clear (CLEAR/HAZY); URINE BACTERIA None Seen /hpf (NONE SEEN); URINE BILIRUBIN Negative (NEGATIVE); URINE BLOOD Negative (NEGATIVE); URINE COLOR Yellow (YELLOW); URINE GLUCOSE Negative (NEGATIVE); URINE KETONE Negative (NEGATIVE); URINE LEUKOCYTE ESTERASE Negative (NEGATIVE); URINE NITRATE Negative (NEGATIVE); URINE PROTEIN(semi-quant) Negative (NEGATIVE); URINE RBC 0-2 /hpf (0-2); URINE UROBILINOGEN Negative (NEGATIVE)
== END ==
LOC: ZLAB.STJ 16:13
PROVIDERS: Family Medicine
DX: R35.0 Frequency of micturition (principal)

== ENCOUNTER → 2021-12-14 | Outpatient (CLI) | payer MEDICARE ==
[2021-12-14 23:24] LABS: COLLECTION METHOD CLEAN CATCH
[2021-12-14 23:39] LABS: SQUAMOUS EPITHELIAL None Seen /hpf (0-10); URINE BACTERIA None Seen /hpf (NONE SEEN); URINE CALCIUM OXALATE CRYSTAL Present (NOT PRESENT); URINE WBC >50 /hpf (0-2)
[2021-12-14 23:40] LABS: PH 5.5 (5.0-8.5); URINE APPEARANCE Cloudy (CLEAR/HAZY); URINE BLOOD TRACE-INTACT (NEGATIVE); URINE COLOR Yellow (YELLOW); URINE GLUCOSE Negative (NEGATIVE); URINE KETONE Negative (NEGATIVE); URINE NITRATE Negative (NEGATIVE); URINE PROTEIN(semi-quant) Negative (NEGATIVE); URINE UROBILINOGEN 0.2 E.U/dL (0.2-1.0)
== END ==
LOC: ZLAB.STJ 20:42
PROVIDERS: Family Medicine
DX: R53.83 Other fatigue (principal)

== ENCOUNTER → 2021-12-29 | Outpatient (CLI) | payer MEDICARE ==
[2021-12-29 15:25] LABS: COLLECTION METHOD CLEAN CATCH
[2021-12-29 15:49] LABS: URINE APPEARANCE Cloudy (CLEAR/HAZY); URINE BLOOD TRACE-INTACT (NEGATIVE); URINE COLOR Yellow (YELLOW); URINE GLUCOSE Negative (NEGATIVE); URINE KETONE Negative (NEGATIVE); URINE NITRATE Negative (NEGATIVE); URINE PROTEIN(semi-quant) Negative (NEGATIVE); URINE UROBILINOGEN 0.2 E.U/dL (0.2-1.0)
[2021-12-29 15:52] LABS: SQUAMOUS EPITHELIAL None Seen /hpf (0-10); URINE BACTERIA Rare /hpf (NONE SEEN); URINE WBC >50 /hpf (0-2)
== END ==
LOC: ZCOL.LAB 11:45
PROVIDERS: Family Medicine
DX: R35.0 Frequency of micturition (principal)